=== PATIENT | female | born 1975 | race Caucasian/White ===

== ENCOUNTER 2016-11-24 10:09 | Emergency (ER) | payer MEDICAID ==
[~2016-11-24] VITALS: Ht 152.4 cm; Wt 79.2 kg
[2016-11-24 11:46] LABS: UA SPECIFIC GRAVITY 1.025 (1.005-1.035); microscopic required? YES; urine erythrocyte 1+ (NEGATIVE)
[2016-11-24 12:57] VITALS: BP 132/97
== END 2016-11-24 12:57 | disposition home or self-care (01) ==
LOC: ED 10:09
PROVIDERS: Emergency Medicine Emergency Medical Services
DX: N39.0 Urinary tract infection, site not specified (principal)
CPT/HCPCS: 87491; 87591

== ENCOUNTER 2017-02-07 11:32 | Emergency (ER) | payer MEDICAID ==
[2017-02-07 13:34] LABS: microscopic required? NO
[2017-02-07 13:49] LABS: UA SPECIFIC GRAVITY 1.015 (1.005-1.035); urine erythrocyte NEGATIVE (NEGATIVE)
[2017-02-07 13:50] LABS: BASOPHIL % 0.4 % (0-2); PLATELET COUNT 254 x10^3mcL (130-400); RED CELL DISTRIBUTION WIDTH 13.3 % (11.5-14.5)
[2017-02-07 13:58] LABS: CALCIUM 8.4 mg/dL (8.5-10.1); CARBON DIOXIDE 27.5 mmol/L (21-32); CHLORIDE SERUM 105 mmol/L (98-107); CREATININE SERUM 0.7 mg/dL (0.6-1.0); GFR1 > 60 mL/min; GLUCOSE SERUM 100 mg/dL (74-106); POTASSIUM SERUM 3.4 mmol/L (3.5-5.1); SODIUM SERUM 140 mmol/L (136-145)
[2017-02-07 14:03] LABS: ALKALINE PHOSPHATASE 75 U/L (46-116); ALT/SGPT 56 U/L (14-59); AST/SGOT 32 U/L (15-37); BILIRUBIN TOTAL 0.2 mg/dL (0.20-1.00); TOTAL PROTEIN, SERUM 7.3 g/dL (6.4-8.2)
[2017-02-07 14:06] LABS: ALBUMIN 3.2 g/dL (3.4-5.0)
[2017-02-07 15:06] LABS: AMPHETAMINE QUAL UR NONE DETECTED (NEG <=1000)
[2017-02-07 16:32] VITALS: BP 123/81
== END 2017-02-07 16:32 | disposition home or self-care (01) ==
LOC: ED 11:32
PROVIDERS: Emergency Medicine
DX: R20.0 Anesthesia of skin (principal)
CPT/HCPCS: 36415

== ENCOUNTER 2019-01-24 11:18 | Emergency (ER) | payer MEDICAID ==
[~2019-01-24] VITALS: Ht 152.4 cm; Wt 72.1 kg
[2019-01-24 11:31] VITALS: BP 139/75; Ht 152.4 cm; Wt 72.1 kg
== END 2019-01-24 13:12 | disposition home or self-care (01) ==
LOC: ED 11:18
DX: G56.02 Carpal tunnel syndrome, left upper limb (principal); M54.2 Cervicalgia
CPT/HCPCS: J1885

== ENCOUNTER 2019-07-31 22:20 | Emergency (ER) | payer MEDICAID ==
[~2019-07-31] VITALS: Ht 154.9 cm; Wt 74.5 kg
[2019-07-31 22:26] VITALS: Ht 154.9 cm; Wt 74.5 kg
[2019-07-31 23:47] LABS: BASOPHIL % 0.5 % (0-2); PLATELET COUNT 228 x10^3mcL (130-400)
[2019-08-01 00:06] LABS: CALCIUM 8.7 mg/dL (8.5-10.1); CARBON DIOXIDE 25.9 mmol/L (21-32); CHLORIDE SERUM 107 mmol/L (98-107); CREATININE SERUM 0.8 mg/dL (0.6-1.0); GFR1 > 60 mL/min; GLUCOSE SERUM 135 mg/dL (74-106); POTASSIUM SERUM 3.4 mmol/L (3.5-5.1); SODIUM SERUM 144 mmol/L (136-145)
[2019-08-01 00:11] LABS: ALKALINE PHOSPHATASE 71 U/L (46-116); ALT/SGPT 26 U/L (14-59); AST/SGOT 14 U/L (15-37); BILIRUBIN TOTAL 0.1 mg/dL (0.20-1.00); LIPASE 197 IU/L (73-393)
[2019-08-01 00:14] LABS: ALBUMIN 3.2 g/dL (3.4-5.0)
[2019-08-01 01:00] VITALS: BP 117/83
== END 2019-08-01 01:00 | disposition home or self-care (01) ==
LOC: ED 22:20
PROVIDERS: Emergency Medicine
DX: R07.89 Other chest pain (principal); R11.0 Nausea
CPT/HCPCS: 36415; Q0092

== ENCOUNTER 2020-05-18 09:19 | Emergency (ER) | payer MEDICAID ==
[~2020-05-18] VITALS: Ht 152.4 cm; Wt 73.5 kg
[2020-05-18 09:20] VITALS: Ht 152.4 cm; Wt 73.5 kg
[2020-05-18] MEDS ORDERED: ULTRAM50 MG PO (09:47)
[2020-05-18 10:00] VITALS: BP 144/97
== END 2020-05-18 10:00 | disposition home or self-care (01) ==
LOC: ED 09:19
DX: M79.10 Myalgia, unspecified site (principal); R53.1 Weakness; Z20.828 Contact with and (suspected) exposure to other viral communicable diseases